=== PATIENT | female | born 1985 | race Caucasian/White ===

== ENCOUNTER → 2021-01-30 | Outpatient (CLI) | payer OTHER ==
--- NOTE | 2021-01-30 12:44 | REP ---
INDICATION: PREG 36 WKS GROWTH. COMPARISON: None. TECHNIQUE: Real-time sonographic evaluation of the gravid uterus performed. FINDINGS: Estimated gestational age is36 weeks 1 day 930, EDC 321. Today's measurements indicate appropriate growth. Presentation: Cephalic Placenta anterior, grade 1, without evidence of placenta previa. heart rate is recorded at 155 beats per minute. Amniotic fluid is subjectively normal. JHONNY 9.7, normal 7.7-24.9 Closed cervical length is measured at 3.3 cm. SD ratio umbilical artery 2.35, normal 1.64-3.50. RI 0.57, normal 0.45-0.71. Biometry chart: BPD: 85 mm, 34 weeks 1 days, 22nd percentile. HC: 309 mm, 34 weeks 4 days, 26th percentile AC: 311 mm, 35 weeks 0 days, 34th percentile Femur length: 69 mm, 35 weeks 2 days, 38th percentile HC to AC ratio: 0.99, normal range 0.92-1.11. Estimated weight: 2560g, 23rd percentile. anatomy: Cranium: Grossly normal Lateral Ventricles/Choroid Plexus: Not well seen due to position Posterior Fossa/Cerebellum: Not well seen due to position Nose/lips/profile: Grossly normal Four chamber heart: Grossly normal Right ventricular outflow tract: Not well seen due to position Left ventricular outflow tract: Grossly normal Left-sided stomach: Grossly normal Kidneys: Grossly normal Bladder: Grossly normal Cord Insertion: Grossly normal 3 vessel cord: Grossly normal Spine: Not well seen due to position IMPRESSION: Viable single intrauterine gestation as above. <Electronically signed by Bear Sánchez > 01/30/21 3024
== END ==
LOC: M RAD 10:47
PROVIDERS: ATTEND Nurse Practitioner Women's Health
DX: Z36.89 Encounter for other specified antenatal screening (principal); Z3A.36 36 weeks gestation of pregnancy

== ENCOUNTER 2021-02-26 19:01 | Inpatient (IN) | payer OTHER ==
[~2021-02-26] VITALS: Ht 157.5 cm; Wt 70.9 kg
[2021-02-26 19:26] VITALS: BP 132/79
[2021-02-26] MEDS ORDERED: LIDOCAINE 1% MDV 20ML VIAL INFIL PRN (19:40)
[2021-02-26] MEDS ORDERED: OXYTOCIN DRIP 30 UNITS in IV 1 EA IV PRN (19:40)
[2021-02-26] MEDS ORDERED: PENICILLIN G POTASSIUM IV 5 MU in D5W MINI-BAG PLUS 100 ML IV STA (19:58)
--- NOTE | 2021-02-26 20:03 | HPEPDOC ---
Obstetrical History & Physical General Date of Admission Feb 26, 2021 at 19:01 History of Present Illness 35yo at 40+0 presents for IOL for AMA. She denied VB, LOF, decreased FM, co ntractions. She denied a 12 point ROS. Dating Final EDC: Feb 26, 2021 Antepartum Course Pre- weight (lbs.): 124 Admission Weight (lbs.): 155 Change in Weight (lbs.): 31 Past Medical History Past Obstetrical History : Past Obstetrical History: [employer] History: No pertinent history Past Medical History Medical History seasonal allergies Surgical History: Other (adenoids, ear tubes) Family History Significant Family History: No pertinent family hx Social History Marital Status: Family situation: Spouse/partner home Psychosocial History: No pertinent psych hx * Smoker: non-smoker Alcohol: Denies Drugs: denies Imunizations Tdap status: current Influenza Status: needs Physical Examination Physical Examination GENERAL: Alert and oriented times three. BREAST: . ABDOMEN: Gravid and non-tender to touch. FETUS: Is vertex (VTX) by sterile vaginal examination (SVE), fetus is vertex (VTX) by US HEART RATE: Regular rate and rhythm. LUNGS: Clear to auscultation (CTA). EXTREMITIES: No edema. No clonus Laboratory Data 24H LABS Laboratory Tests 2 02/26/21 19:12: Serology Scanned Report Hepatitis B Testing Urine Culture: No Growth Pertinent Laboratoy Data Blood Type: B+ RBC Antibody Screen: Negative HIV: Negative Hepatitis B: Negative Rapid Plasma Reagin: Nonreactive Rubella: Immune Varicella: Immune Chlamydia/Gonorrhea: Negative Group B Streptococcus: Positive Quad Screen Test: Negative (cfDNA) Cystic Fibrosis: Negative Glucose Tolerance Test: 92 Anatomy Ultrasound Placenta Location: Anterior Normal Anatomy: Yes Estimated Weight (grams): 3100 Vaginal Examination Dilation: 1cm Effacement: 30% Station: -3 Cervical Consistency: Medium Cervical Position: Posterior Presentation: Cephalic presentation (by US) Assessment Variability: Moderate Accelerations: Positive Decelerations: None Tocometer Contractions: No Frequency: irregular Multi-drug resistant Organism: No history of MDRO Assessment/Plan Assessment 35yo at 40+0 presents for IOL for AMA. VS normal. NST CAT I, reactive. SVE 1/T/H, plan for DLFB. 1. AMA 2. GBS positive Rh pobs, GBS POS, ceph by US, EFW 3100, placenta anterior Plan Admit and orient. 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 Diet: clears Group B Streptococcus (GBS) positive, penicillin ordered. Labs and intravenous (IV) per unit protocol. Counseled on Pitocin and induction of labor (IOL). Lactated Ringers (LR): PRN Anticipate [normal spontaneous delivery ()]. C-S as appropriate. BRINA LOPEZ DO Feb 26, 2021 20:03
[2021-02-26 20:30] VITALS: BP 138/85
[2021-02-26] MEDS ORDERED: PROMETHAZINE INJ 25 MG/ML VIAL (J2550) IV PRN (20:30)
[2021-02-26] MEDS ORDERED: BUTORPHANOL 2 MG/ML INJ (J0595) IV PRN (20:30)
[2021-02-26] MEDS: LR 1,000 ML IV SCH (20:37)
[2021-02-26 20:43] LABS: BASO # 0.1 10^3/uL (0.0-0.2); BASO % 0.6 % (0.0-1.0); EOS # 0.2 10^3/uL (0.0-0.5); EOS % 1.7 % (0.0-3.0); HEMATOCRIT 36.9 % (36.0-47.0); HEMOGLOBIN 12.9 g/dl (12.0-15.5); LYMPH # 2.6 10^3/uL (1.5-5.0); LYMPH % 28.5 % (24.0-44.0); MEAN CORPUSCULAR HEMOGLOBIN 33.8 pg (27.0-33.0); MEAN CORPUSCULAR VOLUME 96.6 fl (80.0-96.0); MONO # 0.5 10^3/uL (0.0-0.8); MONO % 5.9 % (2.0-8.0); NEUTROPHILS # 5.6 10^3/uL (1.5-8.5); NEUTROPHILS % 62.2 % (36.0-66.0); PLATELET COUNT, AUTOMATED 279 10^3/uL (150-450); RED BLOOD COUNT 3.82 10^6/uL (4.00-5.40); WHITE BLOOD COUNT 9.1 10^3/uL (4.0-10.0)
[2021-02-27] VITALS (63 sets, daily range): BP systolic 98–164; BP diastolic 55–89
[2021-02-27] MEDS: PENICILLIN G POTASSIUM IV 2.5 MU in IV 1 EA IV SCH ×6 (00:44→20:25)
[2021-02-27] MEDS: LR 1,000 ML IV SCH ×4 (03:45→22:43)
[2021-02-27] MEDS ORDERED: OXYTOCIN DRIP 30 UNITS in IV 1 EA IV SCH (03:50)
--- NOTE | 2021-02-27 08:12 | IPNPDOC ---
Obstetrical Progress Note Date of Service Feb 27, 2021 Subjective to room for assessment. patient is comfortable in bed. FHT: 140, Mod Variability, +accels, -Decel--cat I tracing [place]: 3-09/06, on pit at 3 sve: 09/21/-3 a/p Cat I tracing. latent labor. contintue IOL with pitocin. Objective Vital Signs Date Time Temp Pulse Resp B/P (MAP) Pulse Ox O2 Delivery O2 Flow Rate FiO2 02/27/21 07:17 76 100/56 (71) 02/27/21 06:47 98.5 16 Room Air MANNY HER MD Feb 27, 2021 08:12
[2021-02-27] MEDS ORDERED: ACETAMINOPHEN 500 MG TAB PO PRN (11:25)
[2021-02-27] MEDS ORDERED: FENTANYL 2MCG/ML ROPIVACAINE 0.2% IN 0.9% NACL 100ML IVBAG As Ordered ONE (11:40)
[2021-02-27] MEDS ORDERED: diphenhydrAMINE 50MG/ML VIAL (J1200) IV PRN (14:30)
[2021-02-27] MEDS ORDERED: EPIDURAL/PCA KEYS XX PRN (14:30)
[2021-02-27] MEDS ORDERED: ePHEDrine SULFATE 25 MG/5 ML(5MG/ML) SYRINGE IV PRN (14:30)
[2021-02-27] MEDS ORDERED: ONDANSETRON 4MG/2ML VIAL IV PRN (14:30)
[2021-02-27] MEDS ORDERED: NALOXONE INJ 0.4MG/1ML VIAL (J2310 PER 1MG) IV PRN (14:30)
[2021-02-27] MEDS ORDERED: REFRIGERATOR IV KEYS XX PRN (14:30)
[2021-02-27] MEDS ORDERED: EPIDURAL COMMENT XX SCH (14:30)
[2021-02-27] MEDS ORDERED: LACTATED RINGER'S 1000 ML IV PRN (14:30)
[2021-02-27] MEDS: FENTANYL/ROPIVACAINE/NACL BAG 100 ML EPIDURAL SCH (14:44)
--- NOTE | 2021-02-27 16:30 | IPNPDOC ---
Obstetrical Progress Note Date of Service Feb 27, 2021 Subjective to room for assessment. patient is feeling comfortable with epidural in place. fht: 140, mod [place]bella,+accels, -decel--cat i tracing [place]: 3-09/06, pit at 12 SVE: 5/50/-1, AROM CLEAR MINIMAL FLUID A/P Latent labor. Cat Itracing but late decel after AROM. PIT HALVED AND PATIENT CHANGES WITH RESOLUTION OF THE DECEL. Continue Pit per l&d protocol. anticipate . Objective Vital Signs Date Time Temp Pulse Resp B/P (MAP) Pulse Ox O2 Delivery O2 Flow Rate FiO2 02/27/21 15:37 68 109/59 (76) 02/27/21 11:16 99.0 17 02/27/21 06:47 Room Air MANNY HER MD Feb 27, 2021 16:30
[2021-02-27] MEDS ORDERED: diphenhydrAMINE 50MG/ML VIAL (J1200) IV ONE (22:05)
[2021-02-28] VITALS (13 sets, daily range): BP systolic 97–130; BP diastolic 51–74
[2021-02-28] MEDS: FENTANYL/ROPIVACAINE/NACL BAG 100 ML EPIDURAL SCH (00:30)
[2021-02-28] MEDS: PENICILLIN G POTASSIUM IV 2.5 MU in IV 1 EA IV SCH (02:09)
[2021-02-28] MEDS ORDERED: AZITHROMYCIN INJ 500 MG, VIAL MATE ADAPTER 1 EACH in NS 250 ML IV ONE (04:00)
[2021-02-28] MEDS ORDERED: ceFAZolin SOD 2 GM in IV 1 EA IV ONE (04:00)
[2021-02-28] MEDS ORDERED: BICITRA 30ML SOLN UDC PO ONE (04:05)
--- NOTE | 2021-02-28 04:10 | IPNPDOC ---
Obstetrical Progress Note Date of Service Feb 28, 2021 Subjective To room for assessment. patient has been pshing now for almost 3 hours. FHT 140, mov marbella,+accels, Occasional late decel/variable decel--cat II tracing [place]: 4-5/10, PIT AT 12 SVE: C/C/0, ASYNCLITIC A/P Active labor, started pushing around 1: 20 am. cat II tracing with moderate variability. asynclinic presentation. discussed with patient that she can technically get aup to 4 hrs of pushing with epidural for Primip, but so far she she had made any descending movements. baby has formed moderate caput and patient has moderate edeme and i am worried that baby is not going to fit in hte pelvic. we discussed diagnosis of arrest of rescent and recommandation for delivery. -patient and spouse expressed understanding and are amenable to management plan -test automation architect to the OR, GIVE 2G ANCEF AND 500MG AZITHROMYCIN FOR PROPHYLAXIS. Objective Vital Signs Date Time Temp Pulse Resp B/P (MAP) Pulse Ox O2 Delivery O2 Flow Rate FiO2 02/27/21 20:59 72 112/60 (77) 02/27/21 20:30 98.5 17 Room Air MANNY HER MD Feb 28, 2021 04:10
[2021-02-28] MEDS ORDERED: LIDOCAINE PRES-FREE 2% 10ML AMP As Ordered ONE (04:41)
[2021-02-28] MEDS ORDERED: OXYTOCIN 30 UNITS IN 0.9% NaCl 500ML IV BAG (J2590) As Ordered ONE ×2 (04:41→05:49)
[2021-02-28] MEDS ORDERED: ONDANSETRON 4MG/2ML VIAL As Ordered ONE (04:41)
[2021-02-28] MEDS ORDERED: KETOROLAC 60MG 2ML VIAL As Ordered ONE (04:41)
[2021-02-28] MEDS ORDERED: MORPHINE PRES-FREE INJ 10 MG/10 ML VIAL (J2274) As Ordered ONE (04:41)
[2021-02-28] MEDS ORDERED: METOCLOPRAMIDE INJ 10MG/2ML VIAL (J2765 PER 1) As Ordered ONE (05:00)
[2021-02-28] MEDS ORDERED: NALBUPHINE HCL 10 MG/ML AMP (J2300) IV PRN ×2 (05:02→05:45)
[2021-02-28] MEDS ORDERED: NALOXONE INJ 0.4MG/1ML VIAL (J2310 PER 1MG) IV PRN ×2 (05:02)
[2021-02-28] MEDS ORDERED: diphenhydrAMINE 50MG/ML VIAL (J1200) IV PRN (05:02)
[2021-02-28] MEDS ORDERED: METOCLOPRAMIDE INJ 10MG/2ML VIAL (J2765 PER 1) IV PRN (05:02)
[2021-02-28] MEDS ORDERED: ONDANSETRON 4MG/2ML VIAL IV PRN ×2 (05:02→05:55)
[2021-02-28] MEDS ORDERED: MEPERIDINE 50 MG/ML 1ML VIAL (J2175) As Ordered ONE (05:08)
[2021-02-28 05:09] LABS: CORD GAS ABE V -5.3; CORD GAS HCO3 V 20.3 MEQ/L; CORD GAS O2 SAT V 45.2 %; CORD GAS PH V 7.323 UNITS; CORD GAS PO2 V 19.2 mmHg; CORD GAS TCO2 V 21.5 MEQ/L
[2021-02-28] MEDS ORDERED: fentaNYL 100 MCG/2 ML INJECTION (J3010) As Ordered ONE (05:34)
[2021-02-28] MEDS ORDERED: propofoL 200 MG/20 ML VIAL As Ordered ONE (05:36)
[2021-02-28] MEDS ORDERED: oxyCODONE 5MG TAB PO PRN ×2 (05:45→05:55)
[2021-02-28] MEDS ORDERED: fentaNYL 100 MCG/2 ML INJECTION (J3010) IV PRN (05:45)
[2021-02-28] MEDS ORDERED: KETOROLAC 30 MG/ML 1ML VIAL IV PRN (05:45)
[2021-02-28] MEDS ORDERED: HYDROMORPHONE HCL 0.5 MG/ 0.5 ML SYRINGE (J1170 PER 1) IV PRN (05:45)
[2021-02-28] MEDS ORDERED: MEPERIDINE INJ 25 MG/ML VIAL (J2175) IV PRN (05:45)
[2021-02-28] MEDS ORDERED: ANUSOL HC CREAM 30GM TOP PRN (05:55)
[2021-02-28] MEDS ORDERED: RHOGAM 300 MCG (1500 IU) INJ (J2790) IM SCH (05:55)
[2021-02-28] MEDS ORDERED: OXYTOCIN DRIP 30 UNITS in IV 1 EA IV SCH (05:55)
[2021-02-28] MEDS ORDERED: ONDANSETRON 4 MG TAB PO PRN (05:55)
--- NOTE | 2021-02-28 06:56 | ROOPDOC ---
[facility] [place] Report Of Operation Report of Operation DATE OF PROCEDURE: 02/28/21 PREPROCEDURE DIAGNOSES: Arrest of descent, 40 weeks 2 d IOL, AMA POSTPROCEDURE DIAGNOSES: same as above PROCEDURE PERFORMED: PLTCD SURGEON: MANNY HER MD DIRECTOR PUBLIC: MYCHAL RAY CNM, who help with retraction was essential for this procedure to take place ANESTHESIA: epidural ESTIMATED BLOOD LOSS: Approximately 700mL. COMPLICATIONS: none REMARKS: 2g ancef and 500mg of azithromycin given. UOP 120mL, patient had sign of impending uterine rupture as below. she had a T incision and is not a candidate for TOLAC in the future FINDINGS: pfannenstiel incision. Reinier's ring noted on the uterus with the cauvelaire's sign. low transverse uterine incision done. delivery of female OP, neck hyperextended. midline extension the the cervix. weigth 3130g, [id number], apgars 8/9. Normal ovaries and fallopian tubes. hysterotomy closed in 2 layers with 2 figure of eight stiches placed in the midline at the site and the subserocal hematoma. fascia closed with 0-vicryl. subc closed with 2-0 vicryl interrupted. skin closed with 3-0 monocryl on a rizwana needle. optifoam dressing placed. SPECIMENS REMOVED: placenta DESCRIPTION OF PROCEDURE: Patient was diagnosed with arrest of descent after pushing for 3 hrs without any movement of the fetus. she was concented for delivery and The patient was taken to the operating room where epidural anesthesia was found to be adequate. She was then prepped and draped in the normal sterile fashion in the dorsal supine position with a leftward tilt. A Pfannenstiel skin incision was then made with the scalpel and carried through to the underlying layer of fascia. The fascia was incised in the midline and the incision extended laterally with the curved Rollins scissors. The superior aspect of the fascial incision was then grasped with the Bethany clamps, elevated, and the underlying rectus muscles dissected off bluntly with the scalpel used in the midline. Attention was then turned to the inferior aspect of this incision which, in a similar fashion, was grasped, tented up with Kocker clamps, and the rectus muscles dissected off bluntly. The rectus muscles were then in the midline, and the peritoneum identified and entered bluntly. The peritoneal opening was additionally extended superiorly and laterally by manual traction with good visualization of the bladder. the mobiuss retractor was then inserted and a bladder flap was created. The Reinier's ring was noted on the uterus with the cauvelaire's sign. The lower uterine segment incised between the reinier;s ring below and the subserosal hematoma above in a transverse fashion with the scalpel. The uterine incision was then bluntly extended caudally and cephalad with manual traction and the infants head delivered atraumatically followed by the body. The cord was clamped and cut and handed to awaiting pediatricians. Cord segment obtained and cord blood sent for gases. The placenta was then removed with gentle traction. The uterus was exteriorized and cleared of all clots and debris. The uterine incision was closed with 0- Monocryl in a running locked fashion. an extention was noted toward the cervix and this was also closed with 0-monocryl running locking fashion.A second imbricating layer with 0-Monocryl was placed with excellent hemostasis. An additional [id number] suture using 0-monocryl was placed at the midline of in the area of the subserosal hematoma above the hysterotomy for additional hemostasis. Normal uterus, ovaries and tubes were noted. the retractor was removed then the uterus was returned into the abdomen The gutters were cleared of all clots and the hysterotomy closure was inspected with excellent hemostasis noted again. The fascia was closed with 0-vicryl in a running fashion. The suprafascial area was irrigated and the skin was closed with 3-0 quill monoderm suture. on a rizwana needle. optiforam dressing was applied. The patient tolerated the procedure well. Sponge, lap and needle counts were correct times two. The patient was taken to the recovery room in stable condition. Patient ended up with a T incision and is not a candidate for TOLAC in the future MANNY HER MD Feb 28, 2021 6:04 am
[2021-02-28] MEDS: FERROUS SULFATE 325MG TAB PO SCH (08:03)
[2021-02-28] MEDS: DOCUSATE SODIUM 100MG CAPSULE PO SCH ×2 (08:03→20:58)
[2021-02-28] MEDS: PRENATAL VITAMINS CHEWABLE TABLET PO SCH (08:04)
[2021-02-28] MEDS: KETOROLAC 30 MG/ML 1ML VIAL IV SCH ×3 (10:50→22:52)
[2021-02-28] MEDS: ACETAMINOPHEN 500 MG TAB PO PRN (19:32)
--- NOTE | 2021-03-01 01:23 | IPNPDOC ---
Progress Note Date of Service: Mar 01, 2021 Day#: 1 Progress Note Ms. Harris is a 35yo on postoperative day 1 after primary for arrest of decent. S: States she is doing well. Reports pain controlled with motrin and oxycodone. She is ambulating well, tolerating a regular diet, urinating without difficulty, reports normal bowel activities and has no breast or leg pain. States is going well. Lochia is diminishing. Denies dizziness, lightheadedness. O: VS: Vital Signs Label Value Date Time Patient Temperature 97.1 degrees F 02/28/212199 Pulse 79 02/28/212199 Respiratory Rate 16 bpm 02/28/212199 Blood Pressure Assessment 108/59 (75) 02/28/212199 Source Automatic Cuff (NIBP) Bedside Pulse Oximetry 96 % 02/28/212199 General: Alert. Well-appearing, in no acute distress. PSYCH: Well groomed. Appropriate affect, normal mood. Conversed easily. Neuro: Oriented to time, place, and person. RESP: Lungs clear to auscultation bilaterally without wheezes, rales or rhonchi. Unlabored breathing. CV: Normal RRR, no murmur, c/w normal . No edema to bilateral upper and lower extremities. Negative calf tenderness. Breast: Soft, filling. No erythema or tenderness. Intact nipples. ABD: Soft. Uterus slightly tender to palpation. BS normal x4 quad. Fundus: Firm U-1, Fundus non-tender. Lochia: small, rubra, without odor. MSK: legs without calf tenderness or edema bilaterally SKIN: Abdomen with surgical scar- with opifoam dressing intact, small amount of drainage noted on dsg and marked. A/P 35yo G 1 P 1 day 1 s/p Primary LTCS (with T incision on uterus) at 40+2 wks gestation B positive/RI/ GBS positive- was adequately treated in labor Normal progression. well VSS Continue care and comfort measures, tylenol/motrin/oxycodone for pain Encouraged and ambulation Plan discharge home after 48hrs Discharge medications previously picked up from pharmacy. VS, I&O, 24H, Fishbone Vital Signs/I&O Vital Signs Date Time Temp Pulse Resp B/P (MAP) Pulse Ox O2 Delivery O2 Flow Rate FiO2 02/28/21 23:36 18 Room Air 02/28/21 22:00 97.1 79 108/59 (92) 96 I&O- Last 24 Hours up to 6 AM 03/01/21 06:00 Intake Total 550 ml Output Total 800 ml Balance -250 ml Laboratory Data 24H LABS Laboratory Tests 2 02/28/21 04:58: Cord Venous Blood pH 7.323, Cord Venous Blood PCO2 40.0, Cord Venous Blood PO2 19.2, Cord Venous Blood HCO3 20.3, Cord Venous Blood Total CO2 21.5, Cord Venous Base Excess (Actual) -5.3, Cord Venous Base Excess (Standard) 19.0, Cord Venous Blood Oxygen Saturation 45.2 DESHAWN CASTRO CNM Mar 01, 2021 01:18
[2021-03-01 02:00] VITALS: BP 111/64
[2021-03-01] MEDS: ACETAMINOPHEN 500 MG TAB PO PRN (03:30)
[2021-03-01 05:09] VITALS: BP 109/67
[2021-03-01] MEDS: IBUPROFEN 800 MG TAB PO SCH ×3 (06:11→22:54)
[2021-03-01] MEDS: oxyCODONE 5MG TAB PO PRN ×3 (06:12→20:14)
[2021-03-01 07:09] LABS: HEMOGLOBIN 9.6 g/dl (12.0-15.5); MEAN CORPUSCULAR HEMOGLOBIN 33.9 pg (27.0-33.0); MEAN CORPUSCULAR HGB CONC 34.3 g/dl (32.0-36.5); MEAN CORPUSCULAR VOLUME 98.9 fl (80.0-96.0); PLATELET COUNT, AUTOMATED 184 10^3/uL (150-450); RED BLOOD COUNT 2.83 10^6/uL (4.00-5.40); WHITE BLOOD COUNT 16.1 10^3/uL (4.0-10.0)
[2021-03-01] MEDS: PRENATAL VITAMINS CHEWABLE TABLET PO SCH (08:34)
[2021-03-01] MEDS: FERROUS SULFATE 325MG TAB PO SCH (08:34)
[2021-03-01] MEDS: DOCUSATE SODIUM 100MG CAPSULE PO SCH ×2 (08:34→20:08)
[2021-03-01] MEDS ORDERED: INFLUENZA QUADRIVALENT PF VACCINE 0.5ML SYRINGE IM ONE (09:00)
[2021-03-01 10:02] VITALS: BP 118/62
[2021-03-01] MEDS: SIMETHICONE 80MG CHEW TAB PO PRN (13:35)
[2021-03-01 14:54] VITALS: BP 122/77
[2021-03-01 18:01] VITALS: BP 106/64
[2021-03-01 22:00] VITALS: BP 126/73
[2021-03-02 02:00] VITALS: BP 121/70
[2021-03-02] MEDS: oxyCODONE 5MG TAB PO PRN ×2 (04:21→10:31)
[2021-03-02] MEDS ORDERED: ACET-683 PO (04:50)
[2021-03-02] MEDS ORDERED: PRENCHW PO (04:50)
[2021-03-02] MEDS ORDERED: OXYC-517 PO (04:50)
[2021-03-02] MEDS ORDERED: DOCU100C16 PO (04:50)
[2021-03-02] MEDS ORDERED: IBUP80TA PO (04:50)
[2021-03-02 05:24] VITALS: BP 117/63
[2021-03-02] MEDS: IBUPROFEN 800 MG TAB PO SCH (06:58)
[2021-03-02] MEDS: FERROUS SULFATE 325MG TAB PO SCH (10:30)
[2021-03-02] MEDS: SIMETHICONE 80MG CHEW TAB PO PRN (10:30)
[2021-03-02] MEDS: PRENATAL VITAMINS CHEWABLE TABLET PO SCH (10:30)
[2021-03-02] MEDS: DOCUSATE SODIUM 100MG CAPSULE PO SCH (10:30)
[2021-03-02 11:03] VITALS: BP 108/58
== END 2021-03-02 14:40 | disposition home or self-care (01) | DRG 773 ==
LOC: M LDI 19:01 → M OBS 02-28 07:26
PROVIDERS: ADMIT Obstetrics & Gynecology; ATTEND Obstetrics & Gynecology
PROC: 3E033VJ Introduction of Other Hormone into Peripheral Vein, Percutaneous Approach (ICD-10-PCS; 2021-02-26)
PROC: 10907ZC Drainage of Amniotic Fluid, Therapeutic from Products of Conception, Via Natural or Artificial Opening (ICD-10-PCS; 2021-02-27)
PROC: 10D00Z1 Extraction of Products of Conception, Low, Open Approach (ICD-10-PCS; principal; 2021-02-28 04:32)
DX: O99.824 Streptococcus B carrier state complicating childbirth (principal); O64.0XX0 Obstructed labor due to incomplete rotation of fetal head, not applicable or unspecified; O09.513 Supervision of elderly primigravida, third trimester; O76 Abnormality in fetal heart rate and rhythm complicating labor and delivery; Z3A.40 40 weeks gestation of pregnancy; Z37.0 Single live birth; O43.193 Other malformation of placenta, third trimester